=== PATIENT | male | born 1995 | race Caucasian/White ===

== ENCOUNTER 2021-01-07 08:04 | Emergency (ER) | payer SELFPAY ==
[2021-01-07 08:10] VITALS: BP 136/82; PULSE 75; RESP 16; TEMP 36.7; O2SAT 95; BMI 25.9
--- NOTE | 2021-01-07 08:16 | W.ED.GENADLT ---
HPI - General Adult General: Chief complaint: General Medical Stated complaint: bleeding from nose, PT states severe bleeding Time Seen by Provider: 01/07/21 08:06 History of Present Illness: HPI narrative: Patient is a 25-year-old male who comes to the ED with nosebleed. Patient says he has a history of frequent nosebleeds. This current nosebleed started last night and he got it to stop. This morning when he woke up he started having nosebleed again and was able to get nosebleed to stop before coming to the ED. Denies any injury or trauma to cause nosebleeds. Patient says they have occurred out of nowhere and for no reason. Associated symptoms: Deny chest pain, dyspnea, headache(s), nausea, rash, palpitations or vomiting Review of Systems Const: Denies: fever(s), chills or fatigue Eyes: Denies: change in vision or eye discomfort ENMT: Reports: epistaxis; Denies: throat pain, odynophagia, nasal discharge or nasal congestion Card: Denies: chest pain, palpitations, edema, swelling of feet/ankles, dyspnea on exertion or orthopnea Resp: Denies: dyspnea, productive cough or non-productive cough GI: Denies: abdominal pain, nausea, vomiting, diarrhea, constipation or hematochezia : Denies: flank pain, difficulty urinating, dysuria or hematuria Musc: Denies: neck pain, back pain or extremity swelling Skin/Breast: Denies: rash or new lesions Neuro: Denies: headache(s), numbness in extremities or weakness in extremities PFS ED PFSH: Social History Smoking and tobacco status: current every day smoker Physical Exam Const: COMMON NORMALS: no acute distress, patient oriented x3, healthy appearing and alert GENERAL APPEARANCE: cooperative and comfortable HENMT: COMMON NORMALS: normocephalic HEAD & SCALP: normocephalic NOSE: Epistaxis present bilaterally (No septal hematoma seen. No active bleeding) dried blood present; no active bleeding MOUTH: Normal oral and palatal mucosa present THROAT: posterior oropharynx normal and uvula midline Neck/C-Spine: COMMON NORMALS: supple GENERAL: Yes normal visual inspection Resp: COMMON NORMALS: normal respiratory effort, No retractions, No use of accessory muscles and clear to auscultation bilaterally AUSCULTATION: clear to auscultation bilaterally Cardio: COMMON NORMALS: regular rate, regular rhythm, S1 normal heart sound present, S2 normal heart sound present, No gallops present (Cardio), No clicks present (Cardio), No murmurs present (Cardio) and Peripheral pulses 2+ throughout RATE: regular rate RHYTHM: regular rhythm HEART SOUNDS: S1 normal heart sound present and S2 normal heart sound present PERIPHERAL PULSES: Peripheral pulses 2+ throughout GI: COMMON NORMALS: Normal to inspection, nondistended, normoactive bowel sounds present, Soft to palpation, non-tender and no masses PALPATION: Yes Soft to palpation : COMMON NORMALS: Yes no CVA tenderness BLADDER/KIDNEY EXAM: Yes no CVA tenderness Back/Pelvis: COMMON NORMALS: no CVA tenderness Extremity: COMMON NORMALS: normal to inspection Neuro: COMMON NORMALS: patient oriented x3 and moves all extremities SENSORIUM/ORIENTATION: Yes alert Skin: GENERAL SKIN EXAM: dry skin Course Vital Signs: Vital signs: Vital Signs Temperature 98.1 F 01/07/21 08:10 Pulse Rate 83 01/07/21 08:39 Respiratory Rate 16 01/07/21 08:10 Blood Pressure 125/75 01/07/21 08:39 Pulse Oximetry 96 01/07/21 08:39 MDM - General Adult MDM Narrative: Medical decision making narrative: Patient is a 25-year-old male comes to the ED with a nosebleed. Patient's bleeding was controlled before coming to the ED. He denies any injury or trauma to cause nosebleeds. Patient appears nontoxic and in no acute distress here in the ED. Distress upon exam there is no active bleeding seen, no septal hematoma seen, but there is some dried blood present. Patient diagnosed stasis and sent home with a nasal clamp instructed on how to treat nosebleeds. Return to ED precautions given. Patient also wanted a referral to a PCP to get established. I placed order with case management for patient to be referred to a primary care physician. I told patient case repairer will be called in the next couple days to set up an appoint with the PCP. Patient understood and agreed with plan. Discharge Plan Discharge Patient Disposition: Home Clinical Impression: Epistaxis Condition: Stable Prescriptions: No Action No Known Home Medications RF: 0 Discharge Orders: Discharge ED (Routine); Ordered 01/07/21 Ordered By: Donovan Gudino Discharge Diet: Regular Discharge Activity: Resume usual activity Patient Instructions: Epistaxis (ED) Activity Restrictions/Additional Instructions: Follow-up with medical provider as directed. Case management will contact you in the next several days to set up an appointment with a primary care physician. For any reoccurring nosebleeds use nasal clamp for 15 minutes then removed. Repeat using nasal clamp for another 15 minutes as needed if bleeding continues. You can also use [id number] nasal sprays like Afrin to help manage nosebleeds. Return to the ER or your medical provider if condition worsens. Please read and understand discharge instructions. Thank you for choosing [facility] for your healthcare needs today. Please realize this is an emergency room and that we are providing you with a medical screening exam and this may not be complete and all inclusive of all the testing and or work up that you may need to determine your ailment or severity of your illness. It is very important that you follow up as instructed or that you return to the Emergency Department should you have concerns or if your condition changes or worsens in any way. 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
[2021-01-07 08:39] VITALS: BP 125/75; PULSE 83; O2SAT 96
--- NOTE | 2021-01-08 11:04 | DCPLANNER ---
Addendum entered by Nancy Gonzalez 01/08/21 11:21: Patient called case specialist back, case specialist asked patient if he would like help in getting established with a primary care physician. Patient stated that he does not currently have insurance, but is in the process of getting insurance. Patient then decided that he would wait until his insurance kicked in and then would get established with a primary care physician. Original Note: fish hatchery manager had message to speak with patient about getting established with a primary care physician. fish hatchery manager called phone number [phone], unable to speak with patient at this time a voicemail was left for patient to return top case assembler phone call.
== END 2021-01-07 08:30 | disposition home or self-care (01) ==
PROVIDERS: Emergency Provider Physician Assistant
DX: R04.0 Epistaxis (principal); F17.210 Nicotine dependence, cigarettes, uncomplicated
CPT/HCPCS: 99281